=== PATIENT | female | born 1970 | race Caucasian/White ===

== ENCOUNTER 2017-03-14 20:11 | Emergency (ER) | payer SELFPAY ==
[~2017-03-14] VITALS: Ht 167.6 cm; Wt 102.1 kg
[2017-03-14] MEDS ORDERED: ASPIRIN 325 MG TABLET PO ONE (21:00)
[2017-03-14 21:33] LABS: BASO # 0.1 x10^3/uL (0.0-0.2); BASO % 1 % (0-3); EOS % 1 % (0-3); HEMATOCRIT 40.3 % (36.0-47.0); HEMOGLOBIN 13.5 g/dL (12.0-15.5); LYMPH # 2.8 x10^3/uL (1.0-4.8); LYMPH % 25 % (24-48); MEAN CORPUSCULAR HEMOGLOBIN 30 pg (25-35); MEAN CORPUSCULAR HGB CONC 34 g/dL (31-37); MEAN CORPUSCULAR VOLUME 89 fL (79-100); MONO % 6 % (0-9); NEUT % 68 % (31-73); PLATELET COUNT 300 x10^3/uL (140-400); RED BLOOD COUNT 4.52 x10^6/uL (3.50-5.40); RED CELL DISTRIBUTION WIDTH 14.1 % (11.5-14.5); WHITE BLOOD COUNT 11.3 x10^3/uL (4.0-11.0)
[2017-03-14 21:36] LABS: BILIRUBIN,URINE NEGATIVE (NEG); GLUCOSE,URINE NEGATIVE (NEG); NITRITE,URINE NEGATIVE (NEG); PH,URINE 5.5; PROTEIN,URINE NEGATIVE (NEG-TRACE); UROBILINOGEN,URINE 0.2 mg/dL (0.2 mg/dL)
[2017-03-14 21:43] LABS: BACTERIA,URINE 0 /HPF (0-FEW); BARBITURATES NEG (NEG); BENZODIAZEPINES NEG (NEG); CANNABINOIDS NEG (NEG); COCAINE NEG (NEG); METHADONE NEG (NEG); OPIATES NEG (NEG); PHENCYCLIDINE NEG (NEG); RBC,URINE 0 /HPF (0-2); WBC,URINE 0 /HPF (0-4)
[2017-03-14 21:44] LABS: SQUAMOUS EPITHELIAL CELL,UR FEW /LPF
[2017-03-14 21:46] LABS: ETHANOL, URINE NEG (NEG)
[2017-03-14 21:46] LABS: INR 1.1 (0.8-1.1); PROTHROMBIN TIME PATIENT 13.6 SEC (11.7-14.0)
[2017-03-14 21:51] LABS: CALCIUM 9.1 mg/dL (8.5-10.1); CREATININE 0.9 mg/dL (0.6-1.0); GFR 67.4; POTASSIUM 3.4 mmol/L (3.5-5.1)
--- NOTE | 2017-03-14 22:18 | PHYS DOC ---
Past Medical History Past Medical History: No Pertinent History, Other Past Surgical History: Other Additional Past Surgical Histo: RIGHT FALLOPIAN TUBE REMOVAL(Ectopic Preg) Alcohol Use: Occasionally Drug Use: None Adult General Chief Complaint Chief Complaint: CHEST PAIN HPI HPI Patient is a 46 year old female who presents with constant dyspnea and right upper chest pain worsening over the past 2 weeks associated with dry hacking cough. States cough started first for a few days. She had chills initially, but that has resolved. Chest pain is achy, constant, with no exacerbating or alleviating factors. She denies sore throat, rhinorrhea, nasal congestion, palpitations, diaphoresis, abdominal pain, nausea or vomiting, leg pain or swelling, hemoptysis, orthopnea. Review of Systems Review of Systems Constitutional: Denies fever or chills [] Eyes: Denies change in visual acuity, redness, or eye pain [] HENT: Denies nasal congestion or sore throat [] Respiratory: Has cough and shortness of breath [] Cardiovascular: No additional information not addressed in HPI [] GI: Denies abdominal pain, nausea, vomiting, bloody stools or diarrhea [] : Denies dysuria or hematuria [] Musculoskeletal: Denies back pain or joint pain [] Integument: Denies rash or skin lesions [] Neurologic: Denies headache, focal weakness or sensory changes [] Endocrine: Denies polyuria or polydipsia [] Current Medications Current Medications Current Medications Medications (Trade) Dose Ordered Sig/Mar Start Time Stop Time Status Last Admin Dose Admin Aspirin (Sakina Aspirin) 325 mg 1X ONCE 03/14/17 21:00 03/14/17 21:01 DC 03/14/17 21:41 325 MG Ketorolac Tromethamine (Toradol) 15 mg 1X ONCE 03/14/17 22:30 03/14/17 22:31 DC 03/14/17 22:45 15 MG Allergies Allergies Allergies Coded Allergies Type Severity Reaction Last Updated Verified No Known Drug Allergies 03/14/17 No Physical Exam Physical Exam Constitutional: Well developed, well nourished, no acute distress, non-toxic appearance. [] HENT: Normocephalic, atraumatic, bilateral external ears normal, oropharynx moist, nose normal. [] Eyes: PERRLA, EOMI. [] Neck: Normal range of motion, supple, no stridor. [] Cardiovascular: Heart rate regular rhythm [] Lungs & Thorax: Bilateral breath sounds clear to auscultation [] Abdomen: Bowel sounds normal, soft, no tenderness. [] Skin: Warm, dry, no erythema, no rash. [] Back: Normal range of motion. [] Extremities: No tenderness, ROM intact, no edema, no palpable cord. [] Neurologic: Alert and oriented X 3, normal motor function, normal sensory function, no focal deficits noted. [] Psychologic: Affect normal, judgement normal, mood normal. [] Current Patient Data Vital Signs Vital Signs Date Time Temp Pulse Resp B/P Pulse Ox O2 Delivery O2 Flow Rate FiO2 03/14/17 23:00 92 18 155/95 95 Room Air 03/14/17 20:21 98.8 98.8 Lab Values Laboratory Tests Test 03/14/17 20:34 03/14/17 21:10 03/14/17 21:25 POC Urine HCG, Qualitative Hcg negative (Negative) Urine Collection Type Unknown Urine Color Yellow Urine Clarity Clear Urine pH 5.5 Urine Specific [place] 1.025 Urine Protein Negativemg/dL (NEG-TRACE) Urine Glucose (UA) Negativemg/dL (NEG) Urine Ketones (Stick) 15mg/dL (NEG) Urine Blood Negative (NEG) Urine Nitrite Negative (NEG) Urine Bilirubin Negative (NEG) Urine Urobilinogen Dipstick 0.2mg/dL (0.2 mg/dL) Urine Leukocyte Esterase Negative (NEG) Urine RBC 0/HPF (0-2) Urine WBC 0/HPF (0-4) Urine Squamous Epithelial Cells Few/LPF Urine Bacteria 0/HPF (0-FEW) Urine Mucus Marked/LPF Urine Opiates Screen Neg (NEG) Urine Methadone Screen Neg (NEG) Urine Barbiturates Neg (NEG) Urine Phencyclidine Screen Neg (NEG) Urine Amphetamine/Methamphetamine Neg (NEG) Urine Benzodiazepines Screen Neg (NEG) Urine Cocaine Screen Neg (NEG) Urine Cannabinoids Screen Neg (NEG) Urine Ethyl Alcohol Neg (NEG) White Blood Count 11.3x10^3/uL (4.0-11.0) H Red Blood Count 4.52x10^6/uL (3.50-5.40) Hemoglobin 13.5g/dL (12.0-15.5) Hematocrit 40.3% (36.0-47.0) Mean Corpuscular Volume 89fL (79-100) Mean Corpuscular Hemoglobin 30pg (25-35) Mean Corpuscular Hemoglobin Concent 34g/dL (31-37) Red Cell Distribution Width 14.1% (11.5-14.5) Platelet Count 300x10^3/uL (140-400) Neutrophils (%) (Auto) 68% (31-73) Lymphocytes (%) (Auto) 25% (24-48) Monocytes (%) (Auto) 6% (0-9) Eosinophils (%) (Auto) 1% (0-3) Basophils (%) (Auto) 1% (0-3) Neutrophils # (Auto) 7.7x10^3uL (1.8-7.7) Lymphocytes # (Auto) 2.8x10^3/uL (1.0-4.8) Monocytes # (Auto) 0.7x10^3/uL (0.0-1.1) Eosinophils # (Auto) 0.1x10^3/uL (0.0-0.7) Basophils # (Auto) 0.1x10^3/uL (0.0-0.2) Prothrombin Time 13.6SEC (11.7-14.0) Prothrombin Time INR 1.1 (0.8-1.1) D-Dimer (Azul) 0.28ug/mlFEU (0.00-0.50) Sodium Level 138mmol/L (136-145) Potassium Level 3.4mmol/L (3.5-5.1) L Chloride Level 101mmol/L (98-107) Carbon Dioxide Level 26mmol/L (21-32) Anion Gap 11 (6-14) Blood Urea Nitrogen 16mg/dL (7-20) Creatinine 0.9mg/dL (0.6-1.0) Estimated GFR (Cockcroft-Gault) 67.4 Glucose Level 99mg/dL (70-99) Calcium Level 9.1mg/dL (8.5-10.1) Troponin I Quantitative < 0.017ng/mL (0.000-0.055) SP-Tsr-H-Type Natriuretic Peptide 27pg/mL (0-124) Thyroid Stimulating Hormone (TSH) 2.568uIU/mL (0.358-3.74) Laboratory Tests 03/14/17 21:25 Laboratory Tests 03/14/17 21:25 EKG EKG EKG as interpreted by me as sinus tachycardia, rate 101, no ST-T changes, normal intervals, no ectopy Radiology/Procedures Radiology/Procedures Chest xray as interpreted by me with no acute cardiopulmonary disease process Right shoulder x-ray as interpreted by me is no acute fracture or dislocation Course & Med Decision Making Course & Med Decision Making Pertinent Labs and Imaging studies reviewed. (See chart for details) Workup is unremarkable. She is feeling better after medications. Discussed symptomatic care and encouraged close follow-up with her primary care doctor. Return precautions given. She understands and agrees with plan. Dragon Disclaimer Dragon Disclaimer This electronic medical record was generated, in whole or in part, using a voice recognition dictation system. Departure Departure Impression: Primary Impression: Chest pain Additional Impression: Dyspnea Disposition: HOME, SELF-CARE Condition: STABLE Referrals: CHASE EDMONDSON (PCP) Patient Instructions: Chest Pain (Nonspecific), [id number] Additional Instructions: Take naproxen every 12 hours to help with chest pain. Follow-up with your primary care doctor within one week. Return for any concerns. Scripts Naproxen 375 Mg Tablet1 Tab PO BID #30 TAB Prov:Marely MERCADO MD 03/14/17 Problem Qualifiers Primary Impression: Chest pain Chest pain type: unspecified Qualified Code: R07.9 - Chest pain, unspecified Additional Impression: Dyspnea Dyspnea type: shortness of breath Qualified Code: R06.02 - Shortness of breath Marely MERCADO MD Mar 14, 2017 22:18
[2017-03-14] MEDS ORDERED: NAPR375T3 PO (22:25)
[2017-03-14] MEDS ORDERED: KETOROLAC TROMETHAMINE 30 MG/ML INJ. IV ONE (22:30)
[2017-03-14 23:00] VITALS: BP 155/95
--- NOTE | 2017-03-15 00:23 | EKG ---
[facility] [address] [place] [id number] Test Date: 2017-03-14 Test Time: 20:34:42 Pat Name: MANSOOR GAMING Department: Room: Gender: Female General House Worker: : 1970 Requested By: ASTON PATEL Order Number: [id number] Reading MD: Cosmo Forbes Measurements Intervals [place] Rate: 101 P: 28 PA: 128 QRS: 16 QRSD: 80 T: 2 QT: 354 QTc: 460 Interpretive Statements SINUS TACHYCARDIA Electronically Signed On 03-16-2017 15:37:11 CDT by Cosmo Forbes
--- NOTE | 2017-03-15 08:56 | RAD ---
Chest, 2 views, 03/14/2017: History: Right-sided chest pain The heart size and pulmonary vascularity are normal. No pulmonary infiltrates are seen. There is no evidence of pleural fluid. Mild spurring is present in the spine. IMPRESSION: IMPRESSION: No acute cardiopulmonary abnormality is detected.
--- NOTE | 2017-03-15 08:57 | RAD ---
Right shoulder, 3 views, 03/14/2017: History: Right-sided chest pain No fracture or dislocation is identified. There is minimal degenerative change at the AC joint. IMPRESSION: No acute right shoulder abnormality is detected.
== END 2017-03-14 23:10 | disposition home or self-care (01) ==
LOC: ER 20:11
DX: R07.9 Chest pain, unspecified (principal); R06.02 Shortness of breath
CPT/HCPCS: 36415; 71020; 73030; 80048; 80305; 81001; 83880; 84443; 84484; 84703; 85027; 85379; 85610; 93005; 96374; 99285; J1885; 81025; G0481

== ENCOUNTER 2018-09-04 11:23 | Emergency (ER) | payer SELFPAY ==
[~2018-09-04] VITALS: Ht 167.6 cm; Wt 108.7 kg
[~2018-09-04 11:23] MED LIST: NAPR-695 PO
[2018-09-04 11:51] VITALS: BP 163/83
--- NOTE | 2018-09-04 12:26 | PHYS DOC ---
Past Medical History Past Medical History: No Pertinent History, Other Additional Past Medical Histor: ECTOPIC Past Surgical History: Other Additional Past Surgical Histo: RIGHT FALLOPIAN TUBE REMOVAL(Ectopic Preg) Alcohol Use: Occasionally Drug Use: None Adult General Chief Complaint Chief Complaint: UPPER EXTREMITY PAIN HPI HPI Patient is a 48 year old female who presents with pain to her right shoulder after she injured a nerve. The patient was seen at urgent care yesterday and placed on Flexeril and ibuprofen. She states that she is still hurting today. She states that she has been taking the medication. Review of Systems Review of Systems Constitutional: Denies fever or chills [] Eyes: Denies change in visual acuity, redness, or eye pain [] HENT: Denies nasal congestion or sore throat [] Respiratory: Denies cough or shortness of breath [] Cardiovascular: No additional information not addressed in HPI [] GI: Denies abdominal pain, nausea, vomiting, bloody stools or diarrhea [] : Denies dysuria or hematuria [] Musculoskeletal: See history of present illness Integument: Denies rash or skin lesions [] Neurologic: Denies headache, focal weakness or sensory changes [] Endocrine: Denies polyuria or polydipsia [] All other systems were reviewed and found to be within normal limits, except as documented in this note. Allergies Allergies Allergies Coded Allergies Type Severity Reaction Last Updated Verified No Known Drug Allergies 03/14/17 No Physical Exam Physical Exam Constitutional: Well developed, well nourished, no acute distress, non-toxic appearance. [] Cardiovascular:Heart rate regular rhythm, no murmur [] Lungs & Thorax: Bilateral breath sounds clear to auscultation [] Abdomen: Bowel sounds normal, soft, no tenderness, no masses, no pulsatile masses. [] Skin: Warm, dry, no erythema, no rash. [] Back: No tenderness, no CVA tenderness. [] Extremities: tenderness , no cyanosis, no clubbing, ROM intact, no edema. [] Neurologic: Alert and oriented X 3, normal motor function, normal sensory function, no focal deficits noted. [] Psychologic: Affect normal, judgement normal, mood normal. [] Current Patient Data Vital Signs Vital Signs Date Time Temp Pulse Resp B/P (MAP) Pulse Ox O2 Delivery O2 Flow Rate FiO2 09/04/18 11:51 98.0 77 18 163/83 (109) 96 Room Air 98.0 EKG EKG [] Radiology/Procedures Radiology/Procedures [] Course & Med Decision Making Course & Med Decision Making Pertinent Labs and Imaging studies reviewed. (See chart for details) I explained to the patient that Flexeril and ibuprofen would not fix a pulled muscle or pinched nerve in less than a day. She is to continue the medications that she was prescribed at urgent care and follow-up with her primary care provider. She is in agreement with this plan. Dragon Disclaimer Dragon Disclaimer This electronic medical record was generated, in whole or in part, using a voice recognition dictation system. Departure Departure Impression: Primary Impression: Shoulder strain Disposition: 01 HOME, SELF-CARE Condition: STABLE Referrals: CHASE EDMONDSON (PCP) Patient Instructions: Shoulder Exercises, Generic, SportsMed, Shoulder Pain Additional Instructions: Take the medications they were prescribed at urgent care yesterday. You may take ibuprofen or Tylenol to help with pain control. Use heating pads or muscle creams or patches such as IcyHot, BenGay or Myoflex. MYRA MALIN APRN Sep 04, 2018 12:26
== END 2018-09-04 12:30 | disposition home or self-care (01) ==
LOC: ER 11:23
DX: S46.811A Strain of other muscles, fascia and tendons at shoulder and upper arm level, right arm, initial encounter (principal); X58.XXXA Exposure to other specified factors, initial encounter; Y93.89 Activity, other specified; Y92.89 Other specified places as the place of occurrence of the external cause; Y99.8 Other external cause status
CPT/HCPCS: 99281